=== PATIENT | female | born 1955 | race Caucasian/White ===

== ENCOUNTER 2016-09-20 11:22 | Outpatient (CLI) | payer OTHER ==
[~2016-09-20 11:22] MED LIST: BENICAR HCTZ PO; PLAQUENIL PO; VERAPAMIL PO
== END 2016-09-20 19:21 | disposition home or self-care (01) ==
LOC: SRD 11:22 → EEVIPCON 11:22 → SRD 19:21
PROVIDERS: ATTEND Internal Medicine
DX: M19.071 Primary osteoarthritis, right ankle and foot (principal); M19.042 Primary osteoarthritis, left hand; W19.XXXA Unspecified fall, initial encounter; Y93.89 Activity, other specified; Y92.89 Other specified places as the place of occurrence of the external cause; Y99.8 Other external cause status

== ENCOUNTER 2017-09-11 16:48 | Outpatient (CLI) | payer OTHER | END 2017-09-11 19:37 | disposition home or self-care (01) | LOC: SMA 16:48 | PROVIDERS: ATTEND Internal Medicine | DX: Z12.31 Encounter for screening mammogram for malignant neoplasm of breast (principal) | CPT/HCPCS: 77067 ==

== ENCOUNTER 2017-12-16 22:26 | Emergency (ER) | payer OTHER ==
[~2017-12-16] VITALS: Ht 157.5 cm; Wt 90.7 kg
[2017-12-16 22:37] VITALS: BP_SYST 131
[2017-12-16 23:20] LABS: BILIRUBIN,URINE NEGATIVE (NEGATIVE); BLOOD, URINE NEGATIVE (NEGATIVE); CLARITY/URINE SL HAZY (CLEAR); COLOR,URINE YELLOW (YELLOW); GLUCOSE,URINE NEGATIVE (NEGATIVE); KETONES,URINE TRACE (NEGATIVE); LEUKOCYTE ESTERASE ,URINE NEGATIVE (NEGATIVE); NITRITE, URINE NEGATIVE (NEGATIVE); PH,URINE 5.5 (5.0-8.0); PROTEIN URINE TRACE (NEGATIVE); UROBILINOGEN,URINE 0.2 (0.2-1.0)
[2017-12-16 23:27] LABS: HEMATOCRIT 40.3 % (36-48); HEMOGLOBIN 14.1 g/dL (12.0-16.0); MEAN CORPUSCULAR HEMOGLOBIN 31 pg (27-31); MEAN CORPUSCULAR HGB CONC 35 % (32-36); MEAN CORPUSCULAR VOLUME 88 fL (79.0-98.0); PLATELET COUNT (AUTO) 335 K/uL (130-430); RED BLOOD CELL COUNT(AUTO) 4.56 MIL/uL (4.2-6.2); RED CELL DISTRIBUTION WIDTH 13.6 % (9.0-15.0); WHITE BLOOD COUNT (AUTO) 9.9 K/uL (4.8-10.8)
[2017-12-16 23:35] LABS: CALCIUM 10.1 mg/dL (8.4-11.0); CREATININE 0.84 mg/dL (0.55-1.30); POTASSIUM 3.7 mmol/L (3.5-5.1)
[2017-12-16 23:40] LABS: PROTHROMBIN TIME 9.9 SECS (9.5-12.5)
[2017-12-16 23:41] LABS: ALBUMIN 3.9 g/dL (3.4-4.8); TOTAL BILIRUBIN 0.4 mg/dL (0.0-1.0)
[2017-12-16 23:54] LABS: BASOPHILS % (MANUAL) 0 % (0-2); EOSINOPHILS % (MANUAL) 2 % (0-7); LYMPHOCYTES % (MANUAL) 31 % (20-46); MONOCYTES % (MANUAL) 0 % (0-11)
[2017-12-17] MEDS: MORPHINE 4 MG/ML INJ. SYRINGE IVP ONE (00:23)
[2017-12-17] MEDS: ONDANSETRON HCL 4 MG/2 ML VIAL IVP ONE (00:23)
[2017-12-17] MEDS: NACL 0.9% 1,000 ML IV ONE (00:23)
[2017-12-17 00:58] VITALS: BP_SYST 131
== END 2017-12-17 00:58 | disposition home or self-care (01) ==
LOC: SED 22:26
DX: K21.9 Gastro-esophageal reflux disease without esophagitis (principal); R03.0 Elevated blood-pressure reading, without diagnosis of hypertension; E66.9 Obesity, unspecified; Z68.36 Body mass index [BMI] 36.0-36.9, adult; Z79.899 Other long term (current) drug therapy
CPT/HCPCS: 36415; 71045; 80053; 81003; 82150-TC; 82550-TC; 83690-TC; 84484; 85007; 85027; 85610-TC; 85730-TC; 93005; 99285

== ENCOUNTER 2019-05-19 12:49 | Outpatient (CLI) | payer OTHER | END 2019-05-19 21:25 | disposition home or self-care (01) | LOC: SRD 12:49 | PROVIDERS: ATTEND Internal Medicine | DX: Z12.31 Encounter for screening mammogram for malignant neoplasm of breast (principal); M19.041 Primary osteoarthritis, right hand | CPT/HCPCS: 77067 ==

== ENCOUNTER 2020-06-16 14:35 | Outpatient (CLI) | payer BC, OTHER | END 2020-06-16 21:28 | disposition home or self-care (01) | LOC: SMA 14:35 | PROVIDERS: ATTEND Internal Medicine | DX: Z12.31 Encounter for screening mammogram for malignant neoplasm of breast (principal); N64.89 Other specified disorders of breast | CPT/HCPCS: 77067 ==

== ENCOUNTER 2020-07-14 14:51 | Outpatient (CLI) | payer BC, OTHER | END 2020-07-14 20:45 | disposition home or self-care (01) | LOC: SUS 14:51 | PROVIDERS: ATTEND Internal Medicine | DX: N60.01 Solitary cyst of right breast (principal); N60.02 Solitary cyst of left breast; N64.89 Other specified disorders of breast; R92.8 Other abnormal and inconclusive findings on diagnostic imaging of breast | CPT/HCPCS: 76641 ==

== ENCOUNTER 2021-02-16 07:42 | Day surgery (SDC) | payer BC, SELFPAY ==
[~2021-02-16] VITALS: Ht 157.5 cm; Wt 88.5 kg
[~2021-02-16 07:42] MED LIST changes: +CEFAZOLIN 2 GM IVPB PREMIX 50 ML IV ONE
[2021-02-16] MEDS ORDERED: fentaNYL CITRATE/PF 100 MCG/2 ML AMP IVP ONE (10:50)
[2021-02-16] MEDS ORDERED: WATER FOR IRRIGATION,STERILE 1,000 ML IRRIG.SOLN IR ONE (10:50)
[2021-02-16] MEDS ORDERED: MIDAZOLAM HCL 5 MG/5 ML VIAL IVP ONE (10:50)
[2021-02-16] MEDS ORDERED: BUPIVACAINE /EPINEPHRINE/PF 0.5% 30 ML VIAL INJ ONE (10:50)
[2021-02-16] MEDS ORDERED: ONDANSETRON HCL 4 MG/2 ML VIAL IVP ONE (10:50)
[2021-02-16] MEDS ORDERED: DESFLURANE 15 MIN GAS INH ONE (10:50)
[2021-02-16] MEDS ORDERED: NS IRRIG SOLN 1000 ML IR ONE (10:50)
[2021-02-16] MEDS ORDERED: SUGAMMADEX SODIUM 200 MG/2 ML VIAL IV ONE (10:50)
[2021-02-16] MEDS ORDERED: LR 1,000 ML IV.SOLN IV ONE (10:50)
[2021-02-16] MEDS ORDERED: PROPOFOL 200MG/ 20ML VIAL (DIPRIVAN) IV ONE (10:50)
[2021-02-16] MEDS ORDERED: DEXAMETHASONE SOD PHOSPHATE 4 MG/ML VIAL IVP ONE (10:50)
[2021-02-16] MEDS ORDERED: KETOROLAC TROMETHAMINE 30 MG VIAL IVP ONE (10:50)
[2021-02-16] MEDS ORDERED: LIDOCAINE 1% 10 MG/ML, 20 ML MDV INJ ONE (10:50)
[2021-02-16] MEDS ORDERED: ROCURONIUM BROMIDE 10 MG/ML (ZEMURON) IV ONE (10:50)
[2021-02-16] MEDS ORDERED: ACETAMINOPHEN I.V. 1000 MG 100 ML IV ONE (11:44)
[2021-02-16] MEDS ORDERED: LR 1,000 ML IV SCH (11:45)
[2021-02-16] MEDS ORDERED: HYDROmorphone 1 MG/ML INJ. CARTRIDGE IVP PRN ×2 (11:45)
[2021-02-16] MEDS ORDERED: MIDAZOLAM HCL 2 MG/2 ML VIAL (VERSED) IVP PRN (11:45)
[2021-02-16] MEDS ORDERED: METOCLOPRAMIDE HCL 10 MG/2 ML VIAL IVP PRN (11:45)
[2021-02-16] MEDS ORDERED: MEPERIDINE HCL/PF 25 MG/ML DISP.SYRIN IVP PRN (11:45)
[2021-02-16] MEDS ORDERED: hydrALAZINE HCL 20 MG/ML VIAL IVP PRN (11:45)
[2021-02-16 13:41] VITALS: BP_SYST 116
== END 2021-02-16 14:20 | disposition home or self-care (01) ==
LOC: SDS 07:42 → SMU 07:46 → SDS 14:20
PROVIDERS: ATTEND Surgery
DX: K80.10 Calculus of gallbladder with chronic cholecystitis without obstruction (principal); I10 Essential (primary) hypertension; E66.9 Obesity, unspecified; M32.9 Systemic lupus erythematosus, unspecified; J45.30 Mild persistent asthma, uncomplicated; Z68.37 Body mass index [BMI] 37.0-37.9, adult; Z20.822 Contact with and (suspected) exposure to COVID-19; Z79.899 Other long term (current) drug therapy
CPT/HCPCS: 47562; 82962; 88304; J0131; J0690; J3465; U0003; C1727; J1100; J1885; J2001; J2250; J2405; J2704; J3010; J3490; J7120; Q9967

== ENCOUNTER 2021-06-08 10:05 | Outpatient (CLI) | payer OTHER ==
[~2021-06-08 10:05] MED LIST changes: -CEFAZOLIN 2 GM IVPB PREMIX 50 ML IV ONE
== END 2021-06-08 17:00 | disposition home or self-care (01) ==
LOC: SMA 10:05
PROVIDERS: ATTEND Internal Medicine
DX: Z12.31 Encounter for screening mammogram for malignant neoplasm of breast (principal)
CPT/HCPCS: 77067

== ENCOUNTER 2022-06-20 10:52 | Outpatient (CLI) | payer OTHER | END 2022-06-20 17:52 | disposition home or self-care (01) | LOC: SMA 10:52 | PROVIDERS: ATTEND Internal Medicine | DX: Z12.31 Encounter for screening mammogram for malignant neoplasm of breast (principal) | CPT/HCPCS: 77067 ==

== ENCOUNTER 2023-09-12 08:10 | Outpatient (CLI) | payer OTHER | END 2023-09-12 18:46 | disposition home or self-care (01) | LOC: SMA 08:10 | PROVIDERS: ATTEND Internal Medicine | DX: R92.8 Other abnormal and inconclusive findings on diagnostic imaging of breast (principal) | CPT/HCPCS: 76642; 77065 ==